=== PATIENT | female | born 1965 | race Caucasian/White ===

== ENCOUNTER 2017-05-22 17:41 | Emergency (ER) | payer OTHER ==
[2017-05-22 17:46] VITALS: BP 152/80; PULSE 95; TEMP 98.2; BMI 29.0
[2017-05-22] MEDS ORDERED: ACETAMINOPHEN 325 MG TABLET (FP) PO ONE (18:14)
[2017-05-22] MEDS ORDERED: ACETAMINOPHEN 325 MG TABLET (FP) ONE (18:17)
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
== END 2017-05-22 18:23 | disposition home or self-care (01) ==
LOC: JERFT 17:41
DX: S30.0XXA Contusion of lower back and pelvis, initial encounter (principal); V79.59XA Passenger on bus injured in collision with other motor vehicles in traffic accident, initial encounter; Y92.414 Local residential or business street as the place of occurrence of the external cause; Y93.89 Activity, other specified; Y99.0 Civilian activity done for income or pay
CPT/HCPCS: 99281-25

== ENCOUNTER 2017-07-23 19:09 | Emergency (ER) | payer OTHER ==
[2017-07-23 19:20] VITALS: BP 158/87; PULSE 103; TEMP 98.1; BMI 28.8
--- NOTE | 2017-07-23 19:22 | PDOC ---
Rapid Medical Evaluation Chief Complaint: Sore Throat Time Seen by Provider: 07/23/17 19:17 Medical Evaluation: Allergies Allergy/AdvReac Type Severity Reaction Status Date / Time aspirin Allergy Swelling Verified 05/22/17 17:42 07/23/17 19:19 I have performed a brief in-person evaluation of this patient. The patient presents with a chief complaint of: ?throat pain vs feeling somehing in throat Pertinent physical exam findings: pt no distress, able to speak, swallow liquids , dm x 3 mos. sugar was 405 earlier I have ordered the following: cbc, cmp, rapid strep. The patient will proceed to the ED for further evaluation. Discharge Disposition - Diagnosis Throat pain in adult - Referrals - Patient Instructions - Post Discharge Activity
[2017-07-23 19:54] LABS: BASOPHIL 0.4 % (0-2.0); EOSINOPHIL 2.5 % (0-4.5); MCH 28.1 pg (25.7-33.7); MCHC 33.7 g/dl (32.0-36.0); MEAN CELL VOLUME 83.5 fl (80-96); MEAN PLT VOLUME 8.3 fl (7.5-11.1); NEUTROPHILS 65.2 % (42.8-82.8); PLATELET COUNT 215 K/MM3 (134-434); RDW 13.6 % (11.6-15.6)
[2017-07-23 20:25] LABS: ALBUMIN 3.3 g/dl (3.4-5.0); ANION GAP 9 (8-16); BILIRUBIN,TOTAL 0.3 mg/dL (0.2-1.0); CALCIUM 8.3 mg/dL (8.5-10.1); CO2 27 mmol/L (21-32); CREATININE 0.7 mg/dL (0.55-1.02); GLUCOSE,RANDOM 248 mg/dL (74-106); SGOT/AST 13 U/L (15-37); SGPT/ALT 23 U/L (12-78); TOT PROT 7.5 g/dl (6.4-8.2)
[2017-07-23 20:26] LABS: ALK PHOS 174 U/L (45-117)
--- NOTE | 2017-07-23 20:42 | PDOC ---
History of Present Illness <Tiffany Tyson - Last Filed: 07/23/17 20:41> - General History Source: Patient Exam Limitations: No Limitations - History of Present Illness Initial Comments: 07/23/17 20:46 52 year old female, with significant past medical history of DM, and Hep C, who presents to the emergency room complaining of a foreign body sensation in her throat that started this morning. The patient feels like there is something poking her throat and describes that it feels uncomfortable, but not painful. She states that she had chicken last night and this morning that she believes irritated her throat. She notes that she ate and drank water all day today without difficulty. She denies difficulty swallowing, difficulty breathing. She reports that she also has a productive cough that she caught from her kids at home. Denies chest pain, SOB, Denies difficulty swallowing, difficulty breathing. Denies fever, chills, nausea, vomiting. Allergies: Aspirin <Dipika Douglass - Last Filed: 07/23/17 20:51> - General Chief Complaint: Sore Throat Stated Complaint: SORE THROAT Time Seen by Provider: 07/23/17 19:17 Past History - Past Medical History Anemia: No Asthma: Yes Cancer: No Cardiac Disorders: No CVA: Yes (states was actually a cocaine od at age 18) COPD: No CHF: No Dementia: No Diabetes: Yes GI Disorders: No Disorders: No HTN: No Hypercholesterolemia: Yes Liver Disease: Yes (?cirrhosis) Seizures: No Thyroid Disease: No - Suicide/Smoking/Psychosocial Hx Smoking History: Current every day smoker Have you smoked in the past 12 months: Yes Number of Cigarettes Smoked Daily: 1 Information on smoking cessation initiated: No 'Breaking Loose' booklet given: 02/12/15 Hx Alcohol Use: No (never) Drug/Substance Use Hx: Yes Substance Use Type: Cocaine, Heroin Hx Substance Use Treatment: Yes (new focus, [facility]) <Tiffany Tyson - Last Filed: 07/23/17 20:41> <Dipika Douglass - Last Filed: 07/23/17 20:51> - Past Medical History Allergies/Adverse Reactions: Allergies Allergy/AdvReac Type Severity Reaction Status Date / Time aspirin Allergy Swelling Verified 07/23/17 19:20 Home Medications: Ambulatory Orders Meloxicam [Mobic -] 15 mg PO DAILY 02/12/15 Methadone [Dolophine -] 80 mg PO DAILY 02/12/15 Gabapentin [Neurontin -] 400 mg PO Q8H 02/23/15 Albuterol 0.083% Nebulizer Colleen [Ventolin 0.083%] 1 neb NEB QID 05/29/17 Cetirizine HCl [Zyrtec -] 1 tab PO DAILY 05/29/17 Cholecalciferol (Vitamin D3) [Vitamin D3] 1 tab PO WEEKLY 05/29/17 Glyburide/Metformin HCl [Glyburide-Metformin 5-500 mg] 1 tab PO BID 05/29/17 Omeprazole 1 tab PO DAILY 05/29/17 Oxycodone HCl/Acetaminophen [Percocet 10-325 mg Tablet] 1 tab PO BID 05/29/17 Simvastatin [Zocor -] 1 tab PO HS 05/29/17 Review of Systems - Review of Systems Able to Perform ROS?: Yes Comments:: 07/23/17 20:47 CONSTITUTIONAL: Absent: fever, no chills, no fatigue EYES: Absent: visual changes ENT: Present: sore throat Absent: ear pain, CARDIOVASCULAR: Absent: chest pain, no palpitations RESPIRATORY: Present: cough Absent: no SOB GI: Absent: abdominal pain, no nausea, no vomiting, no constipation, no diarrhea GENITOURINARY: Absent: dysuria, no frequency, no hematuria MUSCULOSKELETAL: Absent: back pain, no arthralgia, no myalgia SKIN: Absent: rash NEURO: Absent: headache <Dipika Douglass - Last Filed: 07/23/17 20:51> *Physical Exam - Vital Signs Last Vital Signs Temp Pulse Resp BP Pulse Ox 98.1 F 103 H 20 158/87 99 07/23/17 19:14 07/23/17 19:14 07/23/17 19:14 07/23/17 19:14 07/23/17 19:14 <Tiffany Tyson - Last Filed: 07/23/17 20:41> - Vital Signs Last Vital Signs Temp Pulse Resp BP Pulse Ox 98.1 F 103 H 20 158/87 99 07/23/17 19:14 07/23/17 19:14 07/23/17 19:14 07/23/17 19:14 07/23/17 19:14 - Physical Exam Comments: 07/23/17 20:50 GENERAL: Well-appearing, well-nourished. No apparent distress. HEENT: Normocephalic, atraumatic. PERRL, EOM intact. Oropharynx is clear without erythema or exudates. CARDIOVASCULAR: Normal S1, S2. Regular rate and rhythm. PULMONARY: Clear to auscultation bilaterally. ABDOMEN: Soft, non-distended, non-tender. EXTREMITIES: Normal ROM in all four extremities. No gross deformities. SKIN: Warm, dry. No rash NEUROLOGICAL: No focal neurological deficits. <Dipika Douglass - Last Filed: 07/23/17 20:51> ED Treatment Course - LABORATORY CBC & Chemistry Diagram: 07/23/17 19:30 07/23/17 19:30 - ADDITIONAL ORDERS Additional order review: Laboratory Results 07/23/17 19:30 Sodium 133 L Potassium 3.9 Chloride 97 L Carbon Dioxide 27 Anion Gap 9 BUN 12 D Creatinine 0.7 Creat Clearance w eGFR > 60 Random Glucose 248 H D Calcium 8.3 L Total Bilirubin 0.3 D AST 13 L D ALT 23 D Alkaline Phosphatase 174 H Total Protein 7.5 Albumin 3.3 L 07/23/17 19:20 Group A Strep Rapid Antigen - Preliminary Throat 07/23/17 19:30 RBC 4.50 MCV 83.5 MCHC 33.7 RDW 13.6 MPV 8.3 Neutrophils % 65.2 Lymphocytes % 25.2 D Monocytes % 6.7 Eosinophils % 2.5 Basophils % 0.4 <Tiffany Tyson - Last Filed: 07/23/17 20:41> - LABORATORY CBC & Chemistry Diagram: 07/23/17 19:30 07/23/17 19:30 - ADDITIONAL ORDERS Additional order review: Laboratory Results 07/23/17 19:30 Sodium 133 L Potassium 3.9 Chloride 97 L Carbon Dioxide 27 Anion Gap 9 BUN 12 D Creatinine 0.7 Creat Clearance w eGFR > 60 Random Glucose 248 H D Calcium 8.3 L Total Bilirubin 0.3 D AST 13 L D ALT 23 D Alkaline Phosphatase 174 H Total Protein 7.5 Albumin 3.3 L 07/23/17 19:20 Group A Strep Rapid Antigen - Preliminary Throat 07/23/17 19:30 RBC 4.50 MCV 83.5 MCHC 33.7 RDW 13.6 MPV 8.3 Neutrophils % 65.2 Lymphocytes % 25.2 D Monocytes % 6.7 Eosinophils % 2.5 Basophils % 0.4 <Dipika Douglass - Last Filed: 07/23/17 20:51> *DC/Admit/Observation/Transfer <Tiffany Tyson - Last Filed: 07/23/17 20:41> - Attestations Scribe Attestion: 07/23/17 20:51 Documentation prepared by CAROLYN Lenz, acting as medical sonographer for Tiffany Tyson MD. <Dipika Douglass - Last Filed: 07/23/17 20:51> Diagnosis at time of Disposition: Throat pain in adult - Discharge Dispostion Disposition: HOME Condition at time of disposition: Stable - Referrals Referrals: Christopher Pepe MD [Primary Care Provider] - - Patient Instructions Printed Discharge Instructions: DI for Viral Pharyngitis Additional Instructions: take tylenol for pain - Post Discharge Activity
== END 2017-07-23 20:46 | disposition home or self-care (01) ==
LOC: JER 19:09
DX: J02.9 Acute pharyngitis, unspecified (principal); B97.89 Other viral agents as the cause of diseases classified elsewhere; E11.9 Type 2 diabetes mellitus without complications; E78.00 Pure hypercholesterolemia, unspecified; B18.2 Chronic viral hepatitis C; K74.60 Unspecified cirrhosis of liver; F17.210 Nicotine dependence, cigarettes, uncomplicated
CPT/HCPCS: 36415; 80053; 85025; 87070; 87430; 99281-25

== ENCOUNTER 2017-07-26 10:21 | Emergency (ER) | payer OTHER ==
[2017-07-26 10:39] VITALS: TEMP 97.6; BMI 28.8
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
[2017-07-26] MEDS ORDERED: LIDOCAINE VISCOUS 2% ORAL/TOP 20 ML UNIT-DOSE CUP MM ONE (11:11)
[2017-07-26] MEDS ORDERED: MAG HYDROX/AL HYDROX/SIMETH 355 ML ORAL.SUSP PO ONE (11:11)
[2017-07-26] MEDS ORDERED: diphenhydrAMINE HCL 12.5 MG/5 ML UNIT-DOSE CUPS PO ONE (11:11)
[2017-07-26] MEDS ORDERED: diphenhydrAMINE HCL 12.5 MG/5 ML BULK BOTTLE ONE (11:28)
[2017-07-26] MEDS ORDERED: MAG HYDROX/AL HYDROX/SIMETH 30 ML UNIT-DOSE CUP ONE (11:28)
[2017-07-26 13:42] VITALS: BP 131/77; PULSE 80
== END 2017-07-26 13:44 | disposition home or self-care (01) ==
LOC: JER 10:21
DX: K20.8 Other esophagitis (principal); E11.9 Type 2 diabetes mellitus without complications; Z79.84 Long term (current) use of oral hypoglycemic drugs; B18.2 Chronic viral hepatitis C; F17.210 Nicotine dependence, cigarettes, uncomplicated
CPT/HCPCS: 70490-TC; 71250-TC; 99282-25

== ENCOUNTER 2021-02-21 19:14 | Emergency (ER) | payer OTHER ==
[2021-02-21 19:32] VITALS: BP 162/84; PULSE 82; TEMP 98; BMI 28.1
[2021-02-21] MEDS ORDERED: ACETAMINOPHEN 500 MG TABLET (FP) PO ONE (20:13)
[2021-02-21] MEDS ORDERED: ACETAMINOPHEN 500 MG TABLET (FP) ONE (20:23)
== END 2021-02-21 20:45 | disposition home or self-care (01) ==
LOC: JERFT 19:14
DX: M79.642 Pain in left hand (principal)
CPT/HCPCS: 73110-TC-LT-FY; 73130-TC-LT-FY; 99283-25

== ENCOUNTER 2022-11-12 17:47 | Emergency (ER) | payer OTHER ==
[2022-11-12 18:19] VITALS: BMI 27.3
[2022-11-12] MEDS ORDERED: ONDANSETRON 4 MG/2 ML VIAL IVPUSH ONE (18:35)
[2022-11-12] MEDS ORDERED: SODIUM CHLORIDE 0.9% 500 ML INFUS.BAG IV ONE (18:35)
[2022-11-12] MEDS ORDERED: ONDANSETRON 4 MG/2 ML VIAL ONE (19:58)
[2022-11-12 20:19] LABS: HEMATOCRIT 43.2 % (32.4-45.2); HEMOGLOBIN 14.6 GM/dL (10.7-15.3); MCH 28.6 pg (25.7-33.7); MCHC 33.9 g/dl (32.0-36.0); MEAN CELL VOLUME 84.5 fl (80-96); MEAN PLT VOLUME 8.7 fl (7.5-11.1); PLATELET COUNT 209 10^3/uL (134-434); RBC 5.11 M/mm3 (3.60-5.2); RDW 12.8 % (11.6-15.6); WHITE BLOOD COUNT 20.1 K/mm3 (4.0-10.0)
[2022-11-12 20:40] LABS: ALBUMIN 3.6 g/dl (3.4-5.0); CALCIUM 9.4 mg/dL (8.5-10.1); MAGNESIUM 1.6 mg/dL (1.8-2.4)
[2022-11-12 20:41] LABS: BLOOD UREA NITROGEN 20.3 mg/dL (7-18)
[2022-11-12 20:43] LABS: CREATININE 0.6 mg/dL (0.55-1.3); PHOSPHOROUS 4.3 mg/dL (2.5-4.9)
[2022-11-12] MEDS ORDERED: MAGNESIUM SULF 50% (8.12 MEQ/2 ML-1 GM VIAL) IVPB ONE (20:43)
[2022-11-12 20:45] LABS: BILIRUBIN,TOTAL 0.6 mg/dL (0.2-1); TOT PROT 7.9 g/dl (6.4-8.2)
[2022-11-12] MEDS ORDERED: MAGNESIUM SULF 50% (8.12 MEQ/2 ML-1 GM VIAL) ONE (20:55)
[2022-11-12 21:01] LABS: INR 0.99 (0.83-1.09); PROTHROMBIN TIME (PATIENT) 11.5 SEC (9.7-13.0)
[2022-11-12 21:04] LABS: ACTIVATED PTT 27.3 SECONDS (25.2-36.5)
[2022-11-12 21:35] LABS: ANISOCYTOSIS 0; MACROCYTOSIS 0
[2022-11-12] MEDS ORDERED: ACETAMINOPHEN 1000 MG/100 ML BAG IVPB ONE (22:05)
[2022-11-12] MEDS ORDERED: ACETAMINOPHEN INJECTION 100 ML IVPB ONE (22:36)
[2022-11-13 02:40] VITALS: BP 148/59; PULSE 88; RESP 17; TEMP 98.6
[2022-11-13 03:03] LABS: BASO % 0.3 % (0-2.0); HEMATOCRIT 43.7 % (32.4-45.2); HEMOGLOBIN 14.5 GM/dL (10.7-15.3); LYMPH % 7.1 % (8-40); MCH 28.2 pg (25.7-33.7); MCHC 33.1 g/dl (32.0-36.0); MEAN CELL VOLUME 85.3 fl (80-96); MEAN PLT VOLUME 7.2 fl (7.5-11.1); MONO % 3.6 % (3.8-10.2); PLATELET COUNT 287 10^3/uL (134-434); RBC 5.12 M/mm3 (3.60-5.2); RDW 12.6 % (11.6-15.6); WHITE BLOOD COUNT 13.8 K/mm3 (4.0-10.0)
== END 2022-11-13 04:25 | disposition home or self-care (01) ==
LOC: JER 17:47
PROC: 3E033NZ Introduction of Analgesics, Hypnotics, Sedatives into Peripheral Vein, Percutaneous Approach (ICD-10-PCS; principal; 2022-11-12)
PROC: 3E033GC Introduction of Other Therapeutic Substance into Peripheral Vein, Percutaneous Approach (ICD-10-PCS; 2022-11-12)
PROC: 3E033GC Introduction of Other Therapeutic Substance into Peripheral Vein, Percutaneous Approach (ICD-10-PCS; 2022-11-12)
DX: R11.2 Nausea with vomiting, unspecified (principal); R10.13 Epigastric pain; Z20.822 Contact with and (suspected) exposure to COVID-19
CPT/HCPCS: 0241U-QW; 36415; 71045-TC-FY; 74177-TC; 76705-TC; 80053; 82962; 83605; 83690; 83735; 84100; 84484; 85025; 85610; 85730; 93005; 93010; 99285-25

== ENCOUNTER 2024-08-16 01:25 | Inpatient (IN) | payer OTHER ==
[2024-08-16] MEDS ORDERED: ACETAMINOPHEN INJECTION 100 ML ONE (02:20)
[2024-08-16] MEDS ORDERED: ONDANSETRON 4 MG/2 ML VIAL ONE (02:20)
[2024-08-16] MEDS: SODIUM CHLORIDE 0.9% 500 ML INFUS.BAG IV ONE ×2 (02:31→03:26)
[2024-08-16] MEDS: ACETAMINOPHEN 1000 MG/100 ML BAG IVPB ONE (02:31)
[2024-08-16] MEDS: ONDANSETRON 4 MG/2 ML VIAL IVPUSH ONE (02:31)
[2024-08-16 02:37] LABS: VENOUS BASE EXCESS -1.3 mmol/L (-2-2); VENOUS O2 SATURATION 84.7 % (70-80); VENOUS PH 7.387 (7.310-7.410)
[2024-08-16 02:46] LABS: BASO % 0.2 % (0-2.0); EOS % 1.1 % (0-4.5); HEMATOCRIT 41.6 % (32.4-45.2); LYMPH % 7.1 % (8-40); MCH 29.1 pg (25.7-33.7); MCHC 33.7 g/dl (32.0-36.0); MEAN CELL VOLUME 86.4 fl (80-96); MEAN PLT VOLUME 7.7 fl (7.5-11.1); MONO % 5.1 % (3.8-10.2); NEUT % 86.5 % (42.8-82.8); PLATELET COUNT 284 10^3/uL (134-434); RBC 4.82 M/mm3 (3.60-5.2); RDW 12.9 % (11.6-15.6); WHITE BLOOD COUNT 15.5 K/mm3 (4.0-10.0)
[2024-08-16 02:55] LABS: INR 0.9 (0.83-1.09); PROTHROMBIN TIME (PATIENT) 10.2 SEC (9.7-13.0)
[2024-08-16 03:10] LABS: POTASSIUM 3.7 mmol/L (3.5-5.1)
[2024-08-16 03:12] LABS: CALCIUM 9.5 mg/dL (8.5-10.1)
[2024-08-16 03:13] LABS: ALBUMIN 3.7 g/dl (3.4-5.0); BLOOD UREA NITROGEN 16.6 mg/dL (7-18); MAGNESIUM 1.5 mg/dL (1.8-2.4)
[2024-08-16 03:16] LABS: CREATININE 0.9 mg/dL (0.55-1.3)
[2024-08-16 03:17] LABS: BILIRUBIN,TOTAL 0.4 mg/dL (0.2-1); TOT PROT 7.6 g/dl (6.4-8.2)
[2024-08-16] MEDS: METOCLOPRAMIDE HCL INJECTION 10 MG/2 ML VIAL IVPUSH ONE (03:19)
[2024-08-16] MEDS ORDERED: METOCLOPRAMIDE HCL INJECTION 10 MG/2 ML VIAL ONE (03:22)
[2024-08-16] MEDS ORDERED: MAGNESIUM SULFATE IN WATER 2 GM/50 ML IVPB IVPB ONE (03:32)
[2024-08-16] MEDS: MAGNESIUM SULF 50% (8.12 MEQ/2 ML-1 GM VIAL) IVPB ONE (03:36)
[2024-08-16] MEDS ORDERED: LACTATED RINGERS SOLUTION 1000 ML INFUS.BAG IV ONE (07:30)
[2024-08-16] MEDS: DEXTROSE 5%-LACTATED RINGERS 1,000 ML IV SCH (07:47)
[2024-08-16] MEDS ORDERED: ALBUTEROL SO4 0.083% IH SOL 2.5 MG/3 ML VIAL.NEB. NEB PRN (09:21)
[2024-08-16] MEDS: amLODIPine BESYLATE 5 MG TABLET (FP) PO SCH (11:14)
[2024-08-16] MEDS: PANTOPRAZOLE 40 MG TABLET PO SCH (11:14)
[2024-08-16] MEDS: HEPARIN NA (PORCINE) 5,000 UNITS/ML 1ML VIAL SQ SCH (11:15)
[2024-08-16] MEDS: FENOFIBRIC ACID 135 MG CAP PO SCH (11:15)
[2024-08-16] MEDS: INSULIN (LEVEMIR) 100 UNITS/ML UNITS SQ SCH (11:15)
[2024-08-16] MEDS: methaDONE HCL 10 MG TABLET PO SCH (11:28)
[2024-08-16] MEDS: INSULIN ASPART SLIDING SCALE (NOVOLOG) 1 VIAL SQ SCH ×2 (11:42→16:27)
[2024-08-16] MEDS: ONDANSETRON 4 MG/2 ML VIAL IVPUSH PRN (11:54)
[2024-08-16] MEDS: LACTATED RINGERS SOLUTION 1,000 ML/1,000 ML INFUS.BAG IV SCH (11:54)
[2024-08-16 14:13] VITALS: BMI 24.6
[2024-08-16] MEDS ORDERED: CEFTRIAXONE 1 GM in DEXTROSE 5%-WATER - 50 ML IVPB SCH (14:30)
[2024-08-16] MEDS: ACETAMINOPHEN 500 MG TABLET (FP) PO PRN (14:53)
[2024-08-16] MEDS: INSULIN REGULAR HUMAN 100 UNITS/ML *VIAL IVPUSH ONE (15:28)
[2024-08-16] MEDS: PIPERACILLIN/TAZOB 4.5 GM 4.5 GM/100 ML BAG IVPB SCH (15:29)
[2024-08-16 18:47] VITALS: RESP 18
[2024-08-16] MEDS: ATORVASTATIN CA 40 MG TABLET (FP) PO SCH (21:11)
[2024-08-16] MEDS: DOCUSATE SODIUM 100 MG CAPSULE (FP) PO SCH (21:11)
[2024-08-16 22:33] LABS: URINE APPEARANCE CLEAR; URINE BILIRUBIN NEGATIVE (NEGATIVE); URINE COLOR YELLOW; URINE GLUCOSE (UA) 3+ (NEGATIVE); URINE KETONE NEGATIVE (NEGATIVE); URINE LEUK ESTERASE NEGATIVE (NEGATIVE); URINE NITRITE NEGATIVE (NEGATIVE); URINE PROTEIN NEGATIVE (NEGATIVE); URINE UROBILINOGEN 0.2 mg/dL (0.2-1.0)
[2024-08-16 22:49] LABS: COCAINE, UR NEGATIVE (NEGATIVE); URINE BARBITURATES NEGATIVE (NEGATIVE); URINE BENZODIAZEPINES NEGATIVE (NEGATIVE)
[2024-08-16 22:50] LABS: PHENCYCLIDINE,URINE NEGATIVE (NEGATIVE)
[2024-08-16 22:55] LABS: METHADONE, UR POSITIVE (NEGATIVE); OPIATES, URI POSITIVE (NEGATIVE); URINE AMPHETAMINES NEGATIVE (NEGATIVE)
[2024-08-16 22:58] LABS: EPI CELLS 6.7 /uL (0-25.1); URINE BACTERIA 24.5 /uL (0-1359); URINE RBC 6.7 /uL (0-23.9); URINE WBC 5.3 /uL (0-25.8)
[2024-08-17] MEDS: PIPERACILLIN/TAZOB 4.5 GM 4.5 GM/100 ML BAG IVPB SCH (01:22)
[2024-08-17 05:50] VITALS: BP 124/63; PULSE 90; TEMP 98.8
[2024-08-17 09:29] LABS: BASO % 0.2 % (0-2.0); EOS % 0.1 % (0-4.5); HEMATOCRIT 35.1 % (32.4-45.2); HEMOGLOBIN 11.7 GM/dL (10.7-15.3); LYMPH % 15.9 % (8-40); MCH 29.3 pg (25.7-33.7); MCHC 33.5 g/dl (32.0-36.0); MEAN CELL VOLUME 87.7 fl (80-96); MEAN PLT VOLUME 7.8 fl (7.5-11.1); MONO % 7.4 % (3.8-10.2); NEUT % 76.4 % (42.8-82.8); PLATELET COUNT 194 10^3/uL (134-434); RDW 12.5 % (11.6-15.6); WHITE BLOOD COUNT 8.9 K/mm3 (4.0-10.0)
[2024-08-17 09:45] LABS: POTASSIUM 3.9 mmol/L (3.5-5.1)
[2024-08-17 09:50] LABS: BLOOD UREA NITROGEN 13.4 mg/dL (7-18)
[2024-08-17 09:54] LABS: CREATININE 0.8 mg/dL (0.55-1.3)
[2024-08-17 09:59] LABS: CALCIUM 7.8 mg/dL (8.5-10.1)
== END 2024-08-17 08:42 | disposition left against medical advice (07) | DRG 282 ==
LOC: JER 01:25 → JERBED 05:42 → J5S 08:57
PROVIDERS: ADMIT Internal Medicine; ATTEND Internal Medicine
DX: K85.90 Acute pancreatitis without necrosis or infection, unspecified (principal); E11.40 Type 2 diabetes mellitus with diabetic neuropathy, unspecified; F11.20 Opioid dependence, uncomplicated; D72.829 Elevated white blood cell count, unspecified; E78.5 Hyperlipidemia, unspecified; F17.210 Nicotine dependence, cigarettes, uncomplicated; K21.9 Gastro-esophageal reflux disease without esophagitis; R11.2 Nausea with vomiting, unspecified; R50.9 Fever, unspecified; R74.8 Abnormal levels of other serum enzymes
CPT/HCPCS: 0241U-QW; 36415; 71045-TC-FY; 74177-TC; 80048; 80053; 80061; 80307; 81003; 82010; 82803; 82962; 83036; 83605; 83615; 83690; 83735; 84484; 85025; 85610; 85730; 86850; 86900; 86901; 87040; 87086; 93005; 93010; 99285-25; J0131; J1644; Q9967